=== PATIENT | male | born 1990 | race Two or more races ===

== ENCOUNTER 2024-08-09 02:08 | Emergency (ER) | payer OTHER ==
[~2024-08-09] VITALS: Ht 177.8 cm; Wt 77.1 kg
[2024-08-09] MEDS ORDERED: HYOSCYAMINE SULFATE 0.125 MG TAB.SUBL SL STA (04:29)
[2024-08-09] MEDS ORDERED: RINGERS SOLUTION,LACTATED 1,000 ML IV STA (04:29)
[2024-08-09] MEDS ORDERED: FAMOtidine 10 MG/ML (4ML VIAL) IV PUSH STA (04:29)
[2024-08-09] MEDS ORDERED: DIPHENOXYLATE HCL/ATROPINE 1 UDTAB TABLET PO STA (04:30)
[2024-08-09 04:47] LABS: HEMATOCRIT 47.5 % (39.0-48.0); HEMOGLOBIN 16.7 g/dL (13-16.00); MEAN CELL VOLUME 83.5 fL (80.0-100.00); MEAN CORPUSCULAR HEMOGLOBIN 29.5 pg (27.00-32.0); MEAN CORPUSCULAR HGB CONC 35.3 g/dl (32.0-36.0); PLATELET COUNT 234 K/uL (150-450); RED BLOOD COUNT 5.68 M/uL (4.00-6.00)
[2024-08-09 05:01] LABS: ALBUMIN 4.8 gm/dL (3.4-5.0); BILIRUBIN TOTAL 0.91 mg/dL (0.3-1.2); CALCIUM 9.2 mg/dL (8.5-10.1); CREATININE SERUM 1.04 mg/dL (0.70-1.30); GFR 81.27; GLOBULINA 3.6 G/DL (2.4-3.5); POTASSIUM 4.56 mEq/L (3.5-5.1); TOTAL PROTEIN 8.4 gm/dL (6.4-8.2)
== END 2024-08-09 07:07 | disposition home or self-care (01) ==
LOC: ER 02:10
DX: R19.7 Diarrhea, unspecified (principal); R14.3 Flatulence